=== PATIENT | male | born 1955 | race African-American/Black ===

== ENCOUNTER 2018-06-11 08:09 | Emergency (ER) | payer MEDICAID ==
[~2018-06-11] VITALS: Ht 180.3 cm; Wt 72.0 kg
[~2018-06-11 08:09] MED LIST: CALC1CAP8 PO; MULT-658 PO; NAPR220C PO; OXYC-307 PO
[2018-06-11] MEDS ORDERED: DIPHENHYDRAMINE 25 MG CAPSULE PO ONE (08:30)
[2018-06-11] MEDS ORDERED: DIPHENHYDRAMINE 25 MG CAPSULE ONE (08:38)
[2018-06-11 09:22] VITALS: BP 152/93
== END 2018-06-11 09:33 | disposition home or self-care (01) ==
LOC: ED 09:27
DX: M25.511 Pain in right shoulder (principal); B86 Scabies
CPT/HCPCS: 73030; 99283; Q0163

== ENCOUNTER 2018-07-25 10:01 | Emergency (ER) | payer SELFPAY ==
[~2018-07-25] VITALS: Ht 177.8 cm; Wt 66.6 kg
[2018-07-25 10:09] VITALS: BP 115/72
--- NOTE | 2018-07-25 10:48 | NUR ---
Patient/Caregiver given discharge instructions and they have confirmed that they understand the instructions. Patient ambulatory with steady gait.
== END 2018-07-25 10:49 | disposition home or self-care (01) ==
LOC: ED 10:32
DX: S46.011A Strain of muscle(s) and tendon(s) of the rotator cuff of right shoulder, initial encounter (principal); X58.XXXA Exposure to other specified factors, initial encounter; Y93.89 Activity, other specified; Y92.89 Other specified places as the place of occurrence of the external cause; Y99.8 Other external cause status
CPT/HCPCS: 99281

== ENCOUNTER 2018-12-29 11:26 | Emergency (ER) | payer SELFPAY ==
[~2018-12-29] VITALS: Ht 180.3 cm; Wt 66.0 kg
[~2018-12-29 11:26] MED LIST changes: -NAPR220C PO; +NAPR220C62 PO
[2018-12-29 11:28] VITALS: BP 142/83
== END 2018-12-29 12:44 | disposition home or self-care (01) ==
LOC: ED 12:27
DX: S90.01XA Contusion of right ankle, initial encounter (principal); X50.1XXA Overexertion from prolonged static or awkward postures, initial encounter; Y93.01 Activity, walking, marching and hiking; Y92.410 Unspecified street and highway as the place of occurrence of the external cause; Y99.8 Other external cause status
CPT/HCPCS: 99283

== ENCOUNTER 2019-09-02 14:42 | Emergency (ER) | payer SELFPAY ==
[~2019-09-02] VITALS: Ht 167.6 cm; Wt 66.3 kg
[2019-09-02] MEDS ORDERED: NEOSPORIN OINT. PKT 1 PACKET ONE ×2 (16:08→16:09)
--- NOTE | 2019-09-02 16:20 | NUR ---
REFUSED WRIST LACER
[2019-09-02 16:30] VITALS: BP 159/101
== END 2019-09-02 16:34 | disposition home or self-care (01) ==
LOC: ED 15:00
DX: S60.211A Contusion of right wrist, initial encounter (principal); W01.0XXA Fall on same level from slipping, tripping and stumbling without subsequent striking against object, initial encounter; Y93.89 Activity, other specified; Y92.89 Other specified places as the place of occurrence of the external cause; Y99.8 Other external cause status
CPT/HCPCS: 99284